=== PATIENT | male | born 1965 | race Caucasian/White ===

== ENCOUNTER 2017-01-26 14:36 | Inpatient (IN) | payer MEDICARE, OTHER ==
[~2017-01-26] VITALS: Ht 188 cm; Wt 101.2 kg
[~2017-01-26 14:36] MED LIST: ASPIRIN EC81 MG PO
[2017-01-26 15:42] LABS: HEMOGLOBIN 11.5 gm/dl (14.0-17.5); RED BLOOD COUNT 3.97 M/UL (4.20-5.50); WHITE BLOOD COUNT 9.7 K/UL (4.5-11.0)
[2017-01-27] MEDS ORDERED: LIPITOR TAB 1010 MG PO (00:45)
[2017-01-27] MEDS ORDERED: NORVASC 5 MG TAB5 MG PO (00:45)
[2017-01-27] MEDS ORDERED: PLAVIX 75 MG TA75 MG PO (00:46)
[2017-01-27] MEDS ORDERED: DILTIAZEM 12HR90 MG PO (00:47)
[2017-01-27] MEDS ORDERED: FAMOTIDINE20 MG PO (00:47)
[2017-01-27] MEDS ORDERED: NEURONTIN 300300 MG PO (00:48)
[2017-01-27] MEDS ORDERED: HYDRALAZINE HCL25 MG PO (00:48)
[2017-01-27] MEDS ORDERED: LOSARTAN POTASS25 MG PO (00:52)
[2017-01-27] MEDS ORDERED: METOPROLOL TART50 MG PO (00:53)
[2017-01-27] MEDS ORDERED: NOVOLIN 70100 UNIT/1 SQ ×2 (00:54→00:55)
[2017-01-27] MEDS ORDERED: VITAMIN C500 M1 PO (00:55)
[2017-01-27] MEDS ORDERED: VITAMIN D250000 UNIT PO (00:56)
[2017-01-27 04:55] LABS: RED BLOOD COUNT 3.79 M/UL (4.20-5.50); WHITE BLOOD COUNT 7.7 K/UL (4.5-11.0)
[2017-01-28 05:37] LABS: HEMOGLOBIN 11.2 gm/dl (14.0-17.5); RED BLOOD COUNT 3.91 M/UL (4.20-5.50); WHITE BLOOD COUNT 7.4 K/UL (4.5-11.0)
[2017-01-28 20:11] LABS: RED BLOOD COUNT 3.83 M/UL (4.20-5.50); WHITE BLOOD COUNT 7.9 K/UL (4.5-11.0)
[2017-01-29 04:53] LABS: HEMOGLOBIN 10.5 gm/dl (14.0-17.5); RED BLOOD COUNT 3.65 M/UL (4.20-5.50); WHITE BLOOD COUNT 6.1 K/UL (4.5-11.0)
[2017-01-30 07:49] LABS: HEMOGLOBIN 11.5 gm/dl (14.0-17.5)
[2017-01-30 07:51] LABS: RED BLOOD COUNT 4.05 M/UL (4.20-5.50)
[2017-01-31 05:48] LABS: HEMOGLOBIN 11.1 gm/dl (14.0-17.5); RED BLOOD COUNT 3.89 M/UL (4.20-5.50); WHITE BLOOD COUNT 6.8 K/UL (4.5-11.0)
[2017-02-01 06:07] LABS: HEMOGLOBIN 11.1 gm/dl (14.0-17.5); RED BLOOD COUNT 3.88 M/UL (4.20-5.50); WHITE BLOOD COUNT 7.1 K/UL (4.5-11.0)
[2017-02-03 04:34] LABS: HEMOGLOBIN 11.1 gm/dl (14.0-17.5); RED BLOOD COUNT 3.92 M/UL (4.20-5.50); WHITE BLOOD COUNT 6.3 K/UL (4.5-11.0)
[2017-02-04 05:37] LABS: HEMOGLOBIN 10.7 gm/dl (14.0-17.5); RED BLOOD COUNT 3.76 M/UL (4.20-5.50); WHITE BLOOD COUNT 5.5 K/UL (4.5-11.0)
[2017-02-05] MEDS ORDERED: VITAMIN C 250250 MG PO (15:56)
[2017-02-05] MEDS ORDERED: LEVAQUIN750 MG PO (15:57)
[2017-02-05] MEDS ORDERED: FERROUS SULFAT325 MG PO (15:58)
[2017-02-05] MEDS ORDERED: HYDRALAZINE HCL25 MG PO (15:58)
[2017-02-05] MEDS ORDERED: LIPITOR TAB 2020 MG PO (15:59)
[2017-02-05] MEDS ORDERED: NEPRO CARB ST1000 ML PO (15:59)
[2017-02-05] MEDS ORDERED: LO-DOSE ASPIRIN81 MG PO (16:00)
== END 2017-02-05 18:50 | disposition home health service (06) | DRG 271 ==
LOC: ER1 14:36 → ZEROF 23:15 → MED SURG 4 23:15
PROVIDERS: Emergency Medicine; Internal Medicine; Internal Medicine Nephrology; ADMIT Internal Medicine
PROC: 047L3Z1 Dilation of Left Femoral Artery using Drug-Coated Balloon, Percutaneous Approach (ICD-10-PCS; principal; 2017-01-28)
PROC: 04CL3ZZ Extirpation of Matter from Left Femoral Artery, Percutaneous Approach (ICD-10-PCS; 2017-01-28)
PROC: 0Y6M0Z9 Detachment at Right Foot, Partial 1st Ray, Open Approach (ICD-10-PCS; 2017-01-30)
PROC: 0Y6M0ZB Detachment at Right Foot, Partial 2nd Ray, Open Approach (ICD-10-PCS; 2017-01-30)
PROC: 0Y6M0ZC Detachment at Right Foot, Partial 3rd Ray, Open Approach (ICD-10-PCS; 2017-01-30)
PROC: 0Y6M0ZD Detachment at Right Foot, Partial 4th Ray, Open Approach (ICD-10-PCS; 2017-01-30)
PROC: 0Y6M0ZF Detachment at Right Foot, Partial 5th Ray, Open Approach (ICD-10-PCS; 2017-01-30)
DX: E11.52 Type 2 diabetes mellitus with diabetic peripheral angiopathy with gangrene (principal); N17.9 Acute kidney failure, unspecified; N18.4 Chronic kidney disease, stage 4 (severe); M86.172 Other acute osteomyelitis, left ankle and foot; E11.621 Type 2 diabetes mellitus with foot ulcer; I12.9 Hypertensive chronic kidney disease with stage 1 through stage 4 chronic kidney disease, or unspecified chronic kidney disease; E11.22 Type 2 diabetes mellitus with diabetic chronic kidney disease; F17.210 Nicotine dependence, cigarettes, uncomplicated; K21.9 Gastro-esophageal reflux disease without esophagitis; L97.529 Non-pressure chronic ulcer of other part of left foot with unspecified severity; E78.5 Hyperlipidemia, unspecified; B95.62 Methicillin resistant Staphylococcus aureus infection as the cause of diseases classified elsewhere; B96.89 Other specified bacterial agents as the cause of diseases classified elsewhere; I70.202 Unspecified atherosclerosis of native arteries of extremities, left leg; E11.69 Type 2 diabetes mellitus with other specified complication; Z79.899 Other long term (current) drug therapy; Z79.4 Long term (current) use of insulin
CPT/HCPCS: ECHO; 36245; 36415; 73630; 75630; 80048; 80053; 82550; 82553; 82570; 82962; 83036; 83540; 83550; 83690; 83735; 83874; 84100; 84156; 84484; 85025; 85027; 85347; 85610; 85730; 86140; 87040; 87070; 87077; 87186; 87205; 93005; 93306; 93926; 96365; 96366; 99291; C1725; C1769; C2623; J0360; J0690; J1644; J1650; J2250; J2795; J3010; J3370; J7030; J7040; J7120; Q9965